=== PATIENT | female | born 2000 | race Caucasian/White ===

== ENCOUNTER 2022-06-28 16:39 | Emergency (ER) | payer BC ==
[~2022-06-28] VITALS: Ht 170.2 cm; Wt 65.9 kg
[2022-06-28 17:08] VITALS: BP 124/73
[2022-06-28] MEDS ORDERED: LIDOcaine 1% W/epiNEPHrine 1:100,000 20ml vial SQ ONE (19:55)
[2022-06-28] MEDS ORDERED: cephalexin 500mg capsule PO ONE (20:55)
[2022-06-28] MEDS ORDERED: CEPH500C81 PO (21:02)
== END 2022-06-28 21:28 | disposition home or self-care (01) ==
LOC: ER 16:40
DX: S81.011A Laceration without foreign body, right knee, initial encounter (principal); W19.XXXA Unspecified fall, initial encounter; Y93.23 Activity, snow (alpine) (downhill) skiing, snowboarding, sledding, tobogganing and snow tubing; Y92.89 Other specified places as the place of occurrence of the external cause; Y99.8 Other external cause status
CPT/HCPCS: 12002; 99283